=== PATIENT | male | born 1995 ===

== ENCOUNTER 2016-07-13 22:29 | Emergency (ER) | payer MEDICAID ==
[2016-07-13 22:29] VITALS: BMI 24.3
[2016-07-13 22:33] VITALS: BP 130/69; PULSE 68; RESP 18; O2SAT 99
--- NOTE | 2016-07-13 23:11 | ED PDOC ---
Syncope/Near Syncope/Dizzyness Time Seen by Provider: 07/13/16 22:42 Chief Complaint (Nursing): Syncope Chief Complaint (Provider): syncope History Per: Patient Additional Complaint(s): pt returns to ED tonight for recurrent episodes of syncope over the past several weeks. states he was walking home from dinner with girlfriend when he felt dizzy and syncopized for several seconds per girlfriend. no convulsions or incontinence reported. pt denies c/o at this time. denies associated h/a, blurred vision, cp, sob, palp, abd pain, n/v, numbness, weakness to extremities. seen several times in ED and admitted for same this month but has signed out ama or been d/c and has not f/u outpatient. Past Medical History Reviewed: Historical Data, Nursing Documentation, Vital Signs Vital Signs: Last Vital Signs Temp 989.4 F H 07/13/16 22:31 Pulse 68 07/13/16 22:31 Resp 18 07/13/16 22:31 BP 130/69 07/13/16 22:31 Pulse Ox 99 07/13/16 22:31 - Medical History PMH: Asthma (in childhood) - Family History Family History: States: No Known Family Hx - Social History Current smoker - smoking cessation education provided: Yes Alcohol: Social Drugs: Denies - Immunization History Hx Tetanus Toxoid Vaccination: Yes Hx Influenza Vaccination: Yes Hx Pneumococcal Vaccination: No - Home Medications Home Medications: Ambulatory Orders Medication Instructions Recorded Albuterol HFA [Ventolin HFA 90 07/04/16 mcg/actuation (8 g)] - Allergies Allergies/Adverse Reactions: Allergies Allergy/AdvReac Type Severity Reaction Status Date / Time No Known Allergies Allergy Verified 07/05/16 14:29 Review of Systems ROS Statement: Except As Marked, All Systems Reviewed And Found Negative Neurological: Positive for: Dizziness, Other (syncope) Physical Exam - Reviewed Nursing Documentation Reviewed: Yes Vital Signs Reviewed: Yes - Physical Exam Appears: Positive for: Well, Non-toxic, No Acute Distress Head Exam: Positive for: ATRAUMATIC, NORMAL INSPECTION, NORMOCEPHALIC Skin: Positive for: Normal Color, Warm, DRY Eye Exam: Positive for: EOMI, Normal appearance, PERRL Neck: Positive for: Normal, Painless ROM Cardiovascular/Chest: Positive for: Regular Rate, Rhythm Respiratory: Positive for: CNT, Normal Breath Sounds Gastrointestinal/Abdominal: Positive for: Normal Exam, Bowel Sounds, Soft. Negative for: Tenderness Extremity: Positive for: Normal ROM. Negative for: Tenderness Neurologic/Psych: Positive for: Alert, aviation electrical technician II-XII, Oriented, Gait (steady). Negative for: Motor/Sensory Deficits - ECG O2 Sat by Pulse Oximetry: 99 Medical Decision Making Medical Decision Making: previous records reviewed. pt seen multiple times in ED this month and was ultimately admitted for syncopal episodes last week. labs and ekgs on each visit normal except bradycardia on visit 07/04 when he was admitted. while on telemetry he had echo and MRI brain performed, both normal. pt signed out AMA and returned for another ED visit 07/05. was referred to neuro and cardio but has not f/u. ekg nsr at 65. no acute changes. accucheck and orthostatics normal. will again refer to neuro/cardio for further evaluation. Disposition - Clinical Impression Clinical Impression: Syncope and collapse - Patient ED Disposition Is Patient to be Admitted: No - Disposition Referrals: Maicol Schafer MD [Staff Provider] - Riky Gao MD [Staff Provider] - Disposition: Routine/Home Disposition Time: 23:33 Condition: GOOD Instructions: Syncope (ED) Forms: [facility] ED School/Work Excuse
[2016-07-13 23:30] VITALS: TEMP 98.9
--- NOTE | 2016-07-18 07:13 | CARD ---
APPROVED REPORT EKG Measurement Heart [id number] <Conclusion> Normal sinus rhythm Normal ECG
== END 2016-07-14 00:38 | disposition home or self-care (01) ==
LOC: H.ER 22:29
DX: R55 Syncope and collapse (principal); F17.200 Nicotine dependence, unspecified, uncomplicated; J45.909 Unspecified asthma, uncomplicated

== ENCOUNTER 2016-07-27 18:37 | Emergency (ER) | payer MEDICAID ==
[2016-07-27 18:37] VITALS: BMI 24.3
[2016-07-27 18:49] VITALS: BP 104/60; PULSE 78; RESP 18; TEMP 98.5; O2SAT 99
[2016-07-27] MEDS ORDERED: DiphenhydrAMINE 50 mg/ml Inj IVP STA (19:20)
[2016-07-27] MEDS ORDERED: Sodium Chloride 0.9% 1,000 ML IV STA (19:26)
--- NOTE | 2016-07-27 19:39 | ED PDOC ---
HPI: Chest Pain Time Seen by Provider: 07/27/16 18:56 Chief Complaint (Nursing): Chest Pain History Per: Patient History/Exam Limitations: no limitations Onset/Duration Of Symptoms: Days (5) Current Symptoms Are (Timing): Still Present Severity: Moderate Quality: "Pain" Additional History Per: Patient Additional Complaint(s): The pt is a 20yo male, presents to the ED for evaluation of substernal chest pain for the past 5 days, left sided and associated with multiple episodes of intractable vomiting. pt reports some episodes are blood tinged and also reports occasional abdominal discomfort which he says is chronic. Pt reports his chest pain itself intermittent for past 6 months and has visited this facility as well as [facility] multiple times for same issue. Pt was informed to follow up with a associate product integrity engineer but states he hasnt been able to due to his work. Pt reports his ER visits have resulted with no acute findings. Pt reports some chills but denies any cough or fever. Of note, pt was in [facility] ED yesterday 2x for the same issue and reports he came here today because he was still vomiting yesterday when he was discharged and that he was unhappy with his care. Pt denies any other medical complaints. Against Medical Advice - AMA Patient Left Against Medical Advice: The patient declines admission to the hospital and wishes to leave the Emergency Department. This action is against my medical advice. This decision was made with informed refusal. The patient was told that admission to the hospital is necessary. Explanation of the reasons why were discussed. The risks of leaving were explained to the patient and include, but are not limited to, worsening of known or currently unknown conditions, permanent disability and from undiagnosed or untreated conditions. The patient has the capacity to make this informed decision and understands my explanation of the current medical problem and risks of leaving. The patient voluntarily accepts these risks and signed an AMA form documenting our conversation. The patient was given the opportunity to ask questions and reconsider. The patient was encouraged to return to the Emergency Department at any time for further care. Past Medical History Reviewed: Historical Data, Nursing Documentation, Vital Signs Vital Signs: Last Vital Signs Temp 98.5 F 07/27/16 18:46 Pulse 78 07/27/16 18:46 Resp 18 07/27/16 18:46 BP 104/60 07/27/16 18:46 Pulse Ox 99 07/27/16 19:52 - Medical History PMH: Asthma (in childhood) - Family History Family History: States: Unknown Family Hx - Social History Current smoker - smoking cessation education provided: Yes Alcohol: Occasional Drugs: Denies - Immunization History Hx Tetanus Toxoid Vaccination: No Hx Influenza Vaccination: No Hx Pneumococcal Vaccination: No - Home Medications Home Medications: Ambulatory Orders Medication Instructions Recorded Ciprofloxacin [Cipro] 1 tab PO BID #14 tab 07/27/16 metroNIDAZOLE [Flagyl] 500 mg PO TID #21 tab 07/27/16 - Allergies Allergies/Adverse Reactions: Allergies Allergy/AdvReac Type Severity Reaction Status Date / Time No Known Allergies Allergy Verified 07/27/16 18:46 Review of Systems ROS Statement: Except As Marked, All Systems Reviewed And Found Negative Constitutional: Positive for: Chills, Weakness, Malaise. Negative for: Fever Cardiovascular: Positive for: Chest Pain Respiratory: Positive for: Cough, Shortness of Breath Gastrointestinal: Positive for: Vomiting, Abdominal Pain, Hematemesis. Negative for: Diarrhea, Melena, Hematochezia Musculoskeletal: Negative for: Other (leg swelling) Skin: Positive for: Lesions (multiple lesions to b/l arms) Physical Exam - Reviewed Nursing Documentation Reviewed: Yes Vital Signs Reviewed: Yes - Physical Exam Appears: Positive for: Well, Non-toxic, Uncomfortable Head Exam: Positive for: ATRAUMATIC, NORMAL INSPECTION, NORMOCEPHALIC Skin: Positive for: Normal Color, Warm Eye Exam: Positive for: Normal appearance Neck: Positive for: Normal, Supple Cardiovascular/Chest: Positive for: Regular Rate, Rhythm Respiratory: Positive for: Normal Breath Sounds. Negative for: Respiratory Distress Gastrointestinal/Abdominal: Positive for: Soft. Negative for: Tenderness Extremity: Positive for: Other (well healed abrasions to b/l arm) Neurologic/Psych: Positive for: Alert, Oriented - ECG O2 Sat by Pulse Oximetry: 99 (RA) Pulse Ox Interpretation: Normal Medical Decision Making Medical Decision Making: Time: 1907 Impression: Chest pain and vomiting Reviewed pt's previous charts, noted over 10 visits to this ED as well as [facility] within the past 2 months. Pt has not had a follow up with associate product integrity engineer yet. 2x visits yesterday in [facility] w/ negative workups. pt likely has chronic issue with no emergent pathology. Symptomatic treatment and will stress need for f/u. Plan: * Boodwork * CXR * IV fluids * Phenergan * Protonix * Benadryl * Reassess Shortly after my evaluation, pt decided to AMA. At the time he was also having argument with girlfriend and both were being very disruptive to ER and required security for escort out of ER. Pt signed AMA. Scribe Attestation: Documented by Saida Coronado acting as a scribe for Kerry Robins MD. Provider Attestation: All medical record entries made by the Scribe were at my direction and personally dictated by me. I have reviewed the chart and agree that the record accurately reflects my personal performance of the history, physical exam, medical decision making, and the department course for this patient. I have also personally directed, reviewed, and agree with the discharge instructions and disposition. Disposition - Clinical Impression Clinical Impression: Chest pain - Disposition Disposition: Against Medical Advice Disposition Time: 20:00 Condition: UNKNOWN
--- NOTE | 2016-07-29 16:40 | CARD ---
APPROVED REPORT EKG Measurement Heart [id number] [id number] <Conclusion> Normal sinus rhythm Normal ECG
== END 2016-07-27 20:01 | disposition left against medical advice (07) ==
LOC: H.ER 18:37
DX: R07.9 Chest pain, unspecified (principal); R11.10 Vomiting, unspecified; J45.909 Unspecified asthma, uncomplicated; F17.200 Nicotine dependence, unspecified, uncomplicated

== ENCOUNTER 2016-08-15 02:54 | Emergency (ER) | payer MEDICAID ==
[2016-08-15 03:11] VITALS: BMI 21.5
[2016-08-15 03:13] VITALS: RESP 16
[2016-08-15 04:09] LABS: BASO % 0.5 % (0.0-2.0); EOS # 0.2 K/uL (0.0-0.7); EOS % 2.9 % (0.0-4.0); HEMATOCRIT 42.4 % (35.0-51.0); LYMPH # 2.9 K/uL (1.0-4.3); LYMPH % 36.7 % (20.0-40.0); MEAN CELL VOLUME 88.9 fl (80.0-94.0); MEAN CORPUSCULAR HEMOGLOBIN 30.4 pg (27.0-31.0); MEAN CORPUSCULAR HGB CONC 34.2 g/dL (33.0-37.0); MEAN PLATELET VOLUME 8.7 fl (7.2-11.7); MONO # 0.7 K/uL (0.0-0.8); MONO % 9.3 % (0.0-10.0); NEUT % 50.6 % (50.0-75.0); NRBC % 0.2 % (0.0-0.0); RED CELL DISTRIBUTION WIDTH 13.1 % (11.5-14.5)
[2016-08-15 04:19] LABS: BLOOD UREA NITROGEN 11 mg/dl (9-20); CARBON DIOXIDE 24 mmol/L (22-30); CHLORIDE 104 mmol/L (98-107); GFR AFRICAN-AMERICAN > 60; GLUCOSE,RANDOM 85 mg/dL (75-110); SODIUM 138 mmol/l (132-148)
--- NOTE | 2016-08-15 04:36 | ED PDOC ---
Syncope/Near Syncope/Dizziness Time Seen by Provider: 08/15/16 03:08 Chief Complaint (Nursing): Chest Pain Chief Complaint (Provider): Syncopal episodes History Per: Patient History/Exam Limitations: no limitations Onset/Duration Of Symptoms: Persistent Current Symptoms Are (Timing): Still Present Activity At Onset Of Symptoms: Standing Seizure Or Post-ictal Symptoms: None Additional History Per: Patient Additional Complaint(s): The patient is a 20yo male, presents to the ED for evaluation s/p a syncopal episode that happened prior to arrival. Per pt, he was sleeping and had gotten up to urinate and while standing up in the bathroom, he ended up passing out - pt reports he does not recall any events after going to the bathroom. The patient was discovered by his girlfriend who woke the pt up. He currently denies any tongue biting, tongue swelling, urinary incontinence. The patient additionally reports he's had similar symptoms in the past and was seen at [facility] and was admitted. Pt had again visited [facility] for further evaluations but usually left AMA before complete care was given. Pt recently has had a MRI and Echo done but not an EEG; he also was informed to follow up with a neurologist and sewer digger which he has not been able to do. Currently , the pt offers no additional medical complaints. MRI Brain IMPRESSION: No evidence of acute pathology in the brain. No evidence of mass lesion mass effect or abnormal enhancement in the brain. The temporal lobes are symmetrical in size and shape. Echocardiogram Impression: No acute disease. Past Medical History Reviewed: Historical Data, Nursing Documentation, Vital Signs Vital Signs: Last Vital Signs Temp 98.7 F 08/15/16 03:10 Pulse 60 08/15/16 03:10 Resp 16 08/15/16 03:10 BP 143/65 08/15/16 03:10 Pulse Ox 98 08/15/16 03:10 - Medical History PMH: Asthma (in childhood) - Surgical History Surgical History: No Surg Hx - Family History Family History: States: Unknown Family Hx Other Family History: seizures - Social History Current smoker - smoking cessation education provided: Yes Alcohol: None Drugs: Denies - Immunization History Hx Tetanus Toxoid Vaccination: No Hx Influenza Vaccination: No Hx Pneumococcal Vaccination: No - Home Medications Home Medications: Ambulatory Orders Medication Instructions Recorded Ciprofloxacin [Cipro] 1 tab PO BID #14 tab 07/27/16 metroNIDAZOLE [Flagyl] 500 mg PO TID #21 tab 07/27/16 - Allergies Allergies/Adverse Reactions: Allergies Allergy/AdvReac Type Severity Reaction Status Date / Time No Known Allergies Allergy Verified 07/27/16 18:46 Review of Systems ROS Statement: Except As Marked, All Systems Reviewed And Found Negative ENT: Negative for: Other (tongue swelling, tongue bite) Genitourinary Male: Negative for: Incontinence Neurological: Positive for: Other (syncopal episode) Physical Exam - Reviewed Nursing Documentation Reviewed: Yes Vital Signs Reviewed: Yes - Physical Exam Appears: Positive for: Well, Non-toxic, No Acute Distress Head Exam: Positive for: ATRAUMATIC, NORMAL INSPECTION, NORMOCEPHALIC Skin: Positive for: Normal Color, Warm, DRY Eye Exam: Positive for: Normal appearance Neck: Positive for: Normal, Supple Cardiovascular/Chest: Positive for: Regular Rate, Rhythm Respiratory: Positive for: Normal Breath Sounds. Negative for: Respiratory Distress Gastrointestinal/Abdominal: Positive for: Normal Exam Extremity: Positive for: Normal ROM. Negative for: Deformity, Swelling Neurologic/Psych: Positive for: Alert, Oriented. Negative for: Motor/Sensory Deficits - Laboratory Results Result Diagrams: 08/15/16 04:02 08/15/16 04:02 - ECG ECG: Positive for: Interpreted By Me, Viewed By Me ECG Rhythm: Positive for: Normal QRS, Normal ST Segment, Sinus Rhythm. Negative for: ST/T Changes Rate: 60 O2 Sat by Pulse Oximetry: 98 Medical Decision Making Medical Decision Making: Time: 318 Impression: Recurring syncope Differential: Cardiac arrhythmia, vasovagal syncope due to urination. Plan: -- BMP -- Drug screen -- Prolactin -- Troponin I -- Reassess Time: 0530 Pt with no complaints of syncope while being observed in the ED. Pt has hx of recurrent syncopes for the past two months; this is not an emergent problem and pt has been referred to a neurologist and sewer digger. Pt has had multiple workups in the past which have been negative including one admission for syncope with following workup resulting negative. based on presentation, pt does not need emergent evaluation or observation. Pt informed to follow up with sewer digger and neurologist. Stable for discharge home. Scribe Attestation: Documented by Saida Coronado acting as a scribe for Jan Way MD. Provider Attestation: All medical record entries made by the Scribe were at my direction and personally dictated by me. I have reviewed the chart and agree that the record accurately reflects my personal performance of the history, physical exam, medical decision making, and the department course for this patient. I have also personally directed, reviewed, and agree with the discharge instructions and disposition. Disposition - Clinical Impression Clinical Impression: Syncope - Patient ED Disposition Is Patient to be Admitted: No Doctor Will See Patient In The: Office Counseled Patient/Family Regarding: Studies Performed, Diagnosis, Need For Followup - Disposition Referrals: [facility] [Outside] Riky Gao MD [Staff Provider] - Maicol Schafer MD [Staff Provider] - Disposition: Routine/Home Disposition Time: 05:54 Condition: GOOD Additional Instructions: Return for worsening. Follow up with your PCP in 2-3 days. Follow up with neurologist and sewer digger within 1 week. Instructions: Syncope (ED)
[2016-08-15 04:50] LABS: POTASSIUM 6.2 MMOL/L (3.6-5.0)
[2016-08-15 05:54] VITALS: BP 101/60; PULSE 60; TEMP 98.4; O2SAT 98
--- NOTE | 2016-08-15 18:02 | CARD ---
APPROVED REPORT EKG Measurement Heart [id number] [id number] <Conclusion> Normal sinus rhythm with sinus arrhythmia Normal ECG
== END 2016-08-15 06:15 | disposition home or self-care (01) ==
LOC: H.ER 02:54
DX: R55 Syncope and collapse (principal)

== ENCOUNTER 2016-08-19 04:43 | Emergency (ER) | payer MEDICAID ==
[2016-08-19 04:44] VITALS: BMI 25.8
[2016-08-19 05:10] VITALS: BP 120/70; RESP 17; TEMP 98.7; O2SAT 98
--- NOTE | 2016-08-19 06:11 | ED PDOC ---
Syncope/Near Syncope/Dizziness Time Seen by Provider: 08/19/16 04:52 Chief Complaint (Nursing): Syncope Chief Complaint (Provider): Syncope History Per: Patient History/Exam Limitations: no limitations Onset/Duration Of Symptoms: Hrs Current Symptoms Are (Timing): Still Present Number Of Syncopal Episodes: >3 Activity At Onset Of Symptoms: Had Just Stood up Additional Complaint(s): 20 y/o male patient presenting to the ED with syncope. PT states that he woke up and could not fall back asleep so he watched tv but then felt weak and fainted. His gf states she thought she saw him shake before his fall. PT was at [facility] recently for the same concern. PT states that over the last few months it has been recurringand he denies any other symptoms beyond gen weekness. PT has been seen by Dr. Wayne MD (Neurology) regarding syncope. PT denies any past medical history other than the prior Syncope episodes. - Symptoms Of CVA Recent Aspirin Use: Unknown Past Medical History Reviewed: Historical Data, Nursing Documentation, Vital Signs Vital Signs: Last Vital Signs Temp 98.7 F 08/19/16 05:00 Pulse 68 08/19/16 05:00 Resp 17 08/19/16 05:00 BP 120/70 08/19/16 05:00 Pulse Ox 98 08/19/16 05:00 - Medical History PMH: Asthma (in childhood) - Surgical History Surgical History: No Surg Hx - Family History Family History: States: Unknown Family Hx - Social History Current smoker - smoking cessation education provided: No Alcohol: None Drugs: Denies - Immunization History Hx Tetanus Toxoid Vaccination: No Hx Influenza Vaccination: No Hx Pneumococcal Vaccination: No - Home Medications Home Medications: Ambulatory Orders Medication Instructions Recorded No Known Home Med 08/16/16 - Allergies Allergies/Adverse Reactions: Allergies Allergy/AdvReac Type Severity Reaction Status Date / Time No Known Allergies Allergy Verified 08/16/16 01:35 Review of Systems ROS Statement: Except As Marked, All Systems Reviewed And Found Negative Constitutional: Positive for: Weakness. Negative for: Fever Cardiovascular: Negative for: Chest Pain Respiratory: Negative for: Shortness of Breath Physical Exam - Reviewed Nursing Documentation Reviewed: Yes Vital Signs Reviewed: Yes - Physical Exam Appears: Positive for: Non-toxic, No Acute Distress Head Exam: Positive for: ATRAUMATIC, NORMAL INSPECTION, NORMOCEPHALIC Skin: Positive for: Normal Color, Warm, Dry Eye Exam: Positive for: Normal appearance, EOMI, PERRL Neck: Positive for: Normal, Painless ROM, Supple Cardiovascular/Chest: Positive for: Regular Rate, Rhythm. Negative for: Murmur Respiratory: Positive for: Normal Breath Sounds. Negative for: Respiratory Distress Gastrointestinal/Abdominal: Positive for: Normal Exam Extremity: Positive for: Normal ROM Neurologic/Psych: Positive for: Alert, Oriented. Negative for: Motor/Sensory Deficits - Laboratory Results Result Diagrams: 08/19/16 06:10 08/19/16 06:10 - ECG ECG Rhythm: Positive for: Normal ST Segment, Sinus Rhythm Rate: 56 O2 Sat by Pulse Oximetry: 98 (RA) Pulse Ox Interpretation: Normal Medical Decision Making Medical Decision Making: Time: 550 Initial impression: Syncope Initial plan: --EKG --CMP --TROPONIN I --EKG-ED --CBC 0640 Reassess: --Labs Normal --EKG normal *Pt had MRI on 07/05 showed no episode of pathology in the brain. pt sleeping throught ER stay with no complaints Discharge: Syncope instructed to follow up with outpatient clinic/neurologi Scribe Attestation: Documented by Ashia Campos, acting as a scribe for Diana Flores MD. Scribe Attestation: All medical record entries made by the Scribe were at my direction and personally dictated by me. I have reviewed the chart and agree that the record accurately reflects my personal performance of the history, physical exam, medical decision making, and the department course for this patient. I have also personally directed, reviewed, and agree with the discharge instructions and disposition. Disposition - Clinical Impression Clinical Impression: Syncope - Patient ED Disposition Is Patient to be Admitted: No Counseled Patient/Family Regarding: Studies Performed, Diagnosis, Need For Followup - Disposition Referrals: [facility] [Outside] [facility] [Outside] Riky Gao MD [Staff Provider] - Porfirio Black MD [Medical Doctor] - Disposition: Routine/Home Disposition Time: 06:30 Condition: IMPROVED Additional Instructions: follow up with your primary outside salesperson and neurologist for this chronic problem return to the ED with any worsening or concerning symptoms. Instructions: Syncope (ED)
[2016-08-19 06:13] LABS: BASO % 0.6 % (0.0-2.0); EOS # 0.2 K/uL (0.0-0.7); EOS % 3.5 % (0.0-4.0); HEMOGLOBIN 14.8 g/dL (12.0-18.0); LYMPH # 1.8 K/uL (1.0-4.3); LYMPH % 29.2 % (20.0-40.0); MEAN CELL VOLUME 90.9 fl (80.0-94.0); MEAN CORPUSCULAR HEMOGLOBIN 30.6 pg (27.0-31.0); MEAN CORPUSCULAR HGB CONC 33.6 g/dL (33.0-37.0); MEAN PLATELET VOLUME 9.4 fl (7.2-11.7); MONO # 0.6 K/uL (0.0-0.8); MONO % 9.9 % (0.0-10.0); NEUT # 3.5 K/uL (1.8-7.0); NEUT % 56.8 % (50.0-75.0); NRBC % 0.2 % (0.0-0.0); RBC 4.85 Mil/uL (4.40-5.90); RED CELL DISTRIBUTION WIDTH 12.7 % (11.5-14.5); WHITE BLOOD COUNT 6.1 K/uL (4.8-10.8)
[2016-08-19 06:23] LABS: ALB/GLOB RATIO 1.3 (1.0-2.1); ALBUMIN 4.3 g/dL (3.5-5.0); ALT/SGPT 46 U/L (21-72); AST/SGOT 23 U/L (17-59); BLOOD UREA NITROGEN 8 mg/dl (9-20); CALCIUM 9.2 mg/dL (8.4-10.2); GFR AFRICAN-AMERICAN > 60; GFR NON-AFRICAN AMERICAN > 60
[2016-08-19 06:49] VITALS: PULSE 56
--- NOTE | 2016-08-21 11:58 | CARD ---
APPROVED REPORT EKG Measurement Heart [id number] RI 146P25 [id number] <Conclusion> Sinus bradycardia with sinus arrhythmia Otherwise normal ECG
== END 2016-08-19 07:01 | disposition home or self-care (01) ==
LOC: H.ER 04:43
DX: R55 Syncope and collapse (principal); J45.909 Unspecified asthma, uncomplicated

== ENCOUNTER 2016-09-05 23:41 | Emergency (ER) | payer MEDICAID ==
[2016-09-05 23:41] VITALS: BMI 25.8
[2016-09-06] MEDS ORDERED: Sodium Chloride 0.9% 1,000 ML IV STA (00:36)
[2016-09-06] MEDS ORDERED: Insulin Regular 100 units/ml IVP STA (00:46)
--- NOTE | 2016-09-06 01:07 | ED PDOC ---
HPI: General Adult Time Seen by Provider: 09/06/16 00:14 Chief Complaint (Nursing): Abdominal Pain History Per: Patient Additional Complaint(s): Pt. states today he developed RLQ abdominal pain with ~15 episodes of vomiting. Reports initially vomiting was blood tinged and last vomitus was completely blood prompting ED visit. BMs today have been normal. Reports stools have been green in color and not dark contrary to triage note. Denies melena, hematochezia , BRBPR, fever, previous abdominal surgeries, chest pain, SOB. Past Medical History Reviewed: Historical Data, Nursing Documentation, Vital Signs Vital Signs: Last Vital Signs Temp 96.7 F L 09/06/16 00:07 Pulse 63 09/06/16 00:07 Resp 16 09/06/16 00:07 BP 111/69 09/06/16 00:07 Pulse Ox 98 09/06/16 01:08 - Medical History PMH: Asthma (in childhood) - Family History Family History: States: No Known Family Hx - Immunization History Hx Tetanus Toxoid Vaccination: No Hx Influenza Vaccination: No Hx Pneumococcal Vaccination: No - Home Medications Home Medications: Ambulatory Orders Medication Instructions Recorded Dicyclomine [Bentyl] 20 mg PO Q8 PRN #15 tab 09/06/16 Ondansetron ODT [Zofran ODT] 4 mg PO TID #21 odt 09/06/16 - Allergies Allergies/Adverse Reactions: Allergies Allergy/AdvReac Type Severity Reaction Status Date / Time No Known Allergies Allergy Verified 09/06/16 00:07 Review of Systems ROS Statement: Except As Marked, All Systems Reviewed And Found Negative Gastrointestinal: Positive for: Vomiting, Abdominal Pain, Hematemesis Physical Exam - Reviewed Nursing Documentation Reviewed: Yes Vital Signs Reviewed: Yes - Physical Exam Appears: Positive for: Well, Non-toxic, No Acute Distress Head Exam: Positive for: ATRAUMATIC, NORMAL INSPECTION, NORMOCEPHALIC Skin: Positive for: Normal Color, Warm. Negative for: Rash Eye Exam: Positive for: EOMI, Normal appearance, PERRL ENT: Positive for: Normal ENT Inspection Neck: Positive for: Normal, Painless ROM Cardiovascular/Chest: Positive for: Regular Rate, Rhythm Respiratory: Positive for: CNT, Normal Breath Sounds Gastrointestinal/Abdominal: Positive for: Normal Exam, Bowel Sounds, Soft, Other (negative psoas and obturator sign). Negative for: Tenderness (to deep palpation) Back: Positive for: Normal Inspection. Negative for: L CVA Tenderness, R CVA Tenderness Extremity: Positive for: Normal ROM Neurologic/Psych: Positive for: Alert, Oriented - Laboratory Results Result Diagrams: 09/06/16 00:45 09/06/16 00:45 - ECG O2 Sat by Pulse Oximetry: 98 - Progress ED Course And Treament: Labs ordered. Protonix 40mg IV, zofran 4mg IV given. Re-evaluation Time: 03:12 (Abd remains soft and non-tender.) Condition: Re-examined, Improved Disposition - Clinical Impression Clinical Impression: Abdominal pain - Patient ED Disposition Is Patient to be Admitted: No - Disposition Referrals: [facility] [Outside] Disposition: Routine/Home Disposition Time: 03:12 Condition: STABLE Prescriptions: Dicyclomine [Bentyl] 20 mg PO Q8 PRN #15 tab PRN Reason: abdominal pain Ondansetron ODT [Zofran ODT] 4 mg PO TID #21 odt Instructions: Acute Abdominal Pain (ED)
[2016-09-06 01:12] LABS: BASO # 0.1 K/uL (0.0-0.2); BASO % 0.9 % (0.0-2.0); EOS # 0.2 K/uL (0.0-0.7); EOS % 3.1 % (0.0-4.0); HEMOGLOBIN 13.9 g/dL (12.0-18.0); LYMPH # 2.8 K/uL (1.0-4.3); LYMPH % 34.4 % (20.0-40.0); MEAN CELL VOLUME 90.6 fl (80.0-94.0); MEAN CORPUSCULAR HEMOGLOBIN 30.2 pg (27.0-31.0); MEAN CORPUSCULAR HGB CONC 33.3 g/dL (33.0-37.0); MONO # 0.6 K/uL (0.0-0.8); NEUT # 4.3 K/uL (1.8-7.0); NEUT % 53.6 % (50.0-75.0); NRBC % 0.1 % (0.0-0.0); RBC 4.62 Mil/uL (4.40-5.90); RED CELL DISTRIBUTION WIDTH 12.7 % (11.5-14.5)
[2016-09-06 01:21] LABS: ALB/GLOB RATIO 1.2 (1.0-2.1); ALBUMIN 4.1 g/dL (3.5-5.0); ALT/SGPT 66 U/L (21-72); AST/SGOT 59 U/L (17-59); BLOOD UREA NITROGEN 11 mg/dl (9-20); CALCIUM 9.2 mg/dL (8.4-10.2); GFR AFRICAN-AMERICAN > 60; GFR NON-AFRICAN AMERICAN > 60
[2016-09-06 12:21] VITALS: BP 124/68; PULSE 81; RESP 17; TEMP 98; O2SAT 100
== END 2016-09-06 03:17 | disposition home or self-care (01) ==
LOC: H.ER 23:41
DX: R10.9 Unspecified abdominal pain (principal); R11.10 Vomiting, unspecified